=== PATIENT | female | born 1950 | race Caucasian/White ===

== ENCOUNTER 2021-03-29 05:35 | Day surgery (SDC) | payer MEDICARE ==
[~2021-03-29] VITALS: Ht 165.1 cm; Wt 85.9 kg
[2021-03-29 06:22] LABS: BASOPHILS 0.7 % (0-2); EOSINOPHILS 3.1 % (0-7); HEMATOCRIT 41.3 % (36.0-48.0); HEMOGLOBIN 13.4 g/dL (12-16); LYMPHOCYTES 31.4 % (15-50); MCH 26.7 pg (26.0-34.0); MCHC 32.6 g/dL (31.0-37.0); MCV 82.1 fL (80.0-100.0); MEAN PLATELET VOLUME 7.3 fL (7.4-10.4); MONOCYTES 7.6 % (2-11); NEUTROPHILS 57.2 % (40-80); RBC 5.03 10x6/uL (4.00-5.40); WBC 7.3 10x3/uL (4.8-10.8)
[2021-03-29 06:25] LABS: PLATELET COUNT 314 10x3/uL (130-400)
[2021-03-29 06:42] LABS: ANION GAP 16.1 mmol/L (8-16); CALCIUM 9.5 mg/dL (8.5-10.1); CARBON DIOXIDE 24.2 mmol/L (21.0-32.0); POTASSIUM - SERUM 3.3 mmol/L (3.5-5.1)
[2021-03-29] MEDS ORDERED: ZOVIRAX200 MG PO (07:07)
[2021-03-29] MEDS ORDERED: LIPITOR40 MG PO (07:07)
[2021-03-29] MEDS ORDERED: PEPCID AC20 MG PO (07:08)
[2021-03-29] MEDS ORDERED: GLIMEPIRIDE2 MG PO (07:08)
[2021-03-29] MEDS ORDERED: HYDROCHLOROTH12.5 M1 PO (07:09)
[2021-03-29] MEDS ORDERED: JARDIANCE25 MG PO (07:09)
[2021-03-29] MEDS ORDERED: LATUDA40 MG (07:10)
[2021-03-29] MEDS ORDERED: COZAAR25 MG PO (07:11)
[2021-03-29] MEDS ORDERED: MOBIC7.5 MG PO (07:11)
[2021-03-29] MEDS ORDERED: REGLAN10 MG PO (07:12)
[2021-03-29] MEDS ORDERED: GLUCOPHAGE1000 MG PO (07:12)
[2021-03-29] MEDS ORDERED: OMEPRAZOLE20 M1 PO (07:13)
[2021-03-29] MEDS ORDERED: SINGULAIR10 MG PO (07:13)
[2021-03-29] MEDS ORDERED: MYRBETRIQ50 MG PO (07:13)
[2021-03-29] MEDS ORDERED: OXYBUTYNIN CHLOR5 M1 PO (07:14)
[2021-03-29] MEDS ORDERED: LYRICA75 MG PO (07:15)
[2021-03-29] MEDS ORDERED: TRADJENTA5 MG PO (07:16)
[2021-03-29] MEDS ORDERED: CARAFATE1 G PO (07:16)
[2021-03-29] MEDS ORDERED: REQUIP5 MG PO (07:17)
[2021-03-29 07:21] VITALS: BP 130/62; Ht 165.1 cm; Wt 85.9 kg
--- NOTE | 2021-03-29 11:08 | NUR ---
0930 IV DC'ED WITH CATH INTACT. DRESSING. Suad JENKINS R.N. 0940 DRESSED. AWAKE & ALERT. PROVIDED WITH D/C INFORMATION INCLUDING: MED REC, SHEET LISTING NSAIDS TO AVOID, RTC APPT., & [facility] POST ENDOSCOPY D/C INSTRUCTIONS. PT VOICED UNDERSTANDING. TO PRIVATE CAR PER STAFF. HOME WITH DAUGHTER, SANDRITA HAONG. Suad JENKINS R.N.
--- NOTE | 2021-03-30 19:39 | OP ---
PATIENT NAME: CHRISTI ALLRED MEDICAL RECORD: [id number] :48 LOCATION:D.OPS ADMISSION DATE: SURGEON: FORD COELHO MD DATE OF OPERATION: 03/29/2021 PREOPERATIVE DIAGNOSES: 1. Gastroesophageal reflux disease. 2. Coronary artery disease. 3. Diabetes mellitus. 4. Hypertension. 5. Hypothyroidism. POSTOPERATIVE DIAGNOSES: 1. Gastroesophageal reflux disease. 2. Coronary artery disease. 3. Diabetes mellitus. 4. Hypertension. 5. Hypothyroidism. PROCEDURE: EGD with biopsy and manometry catheter placement. SURGEON: Ford Coelho MD DESCRIPTION OF PROCEDURE: An Olympus endoscope was advanced through the mouth and esophagus. We easily passed through the GE junction. As we entered the stomach, there was noted to be a large amount of food content that was still present in the fundus. We passed through this and we were able to get some retroflexed views of the GE junction. We had to suction out some of the food bolus in order to visualize the area. I saw no evidence of any proximal scarring from any previous bariatric surgery. The patient's stomach anatomically looked normal with no signs of a hiatal hernia. The GE junction rested at 38 cm at the teeth. I was never able to fully get rid of the food bolus to visualize the fundus of the stomach fully, but the stomach itself had no signs of any ulcerations, masses or lesions. As we pulled the scope back, there was a little bit of linear ulceration distal to the mid esophagus. There are no signs of any strictures present. A random biopsy was taken at the GE junction. At this point, the scope was removed. A manometry catheter was inserted through the left naris and easily passed through the esophagus into the stomach. The scope was readvanced and we were able to visualize the manometry catheter advancing through the GE junction into the stomach body. COMPLICATIONS: None. CONDITION: Stable. ANESTHESIA: TIVA. BLOOD LOSS: Minimal. TRANSINT:[id number] Voice Confirmation ID: [id number] DOCUMENT ID: [id number] OPERATIVE REPORT [id number] CHRISTI ALLRED FORD COELHO MD at 1939 CC: DUSTY MILLS MD [id number] DICTATION DATE: 03/29/21 08 MANAGER OF LOSS PREVENTION OPERATIONS: 03/29/21 1132 [facility] 03/29/21 [facility] [address] [id number]
== END 2021-03-29 09:40 | disposition home or self-care (01) ==
LOC: D.OPS 05:35
PROVIDERS: Anesthesiology; ATTEND Surgery
DX: K21.9 Gastro-esophageal reflux disease without esophagitis (principal); I25.10 Atherosclerotic heart disease of native coronary artery without angina pectoris; E11.9 Type 2 diabetes mellitus without complications; I10 Essential (primary) hypertension; E03.9 Hypothyroidism, unspecified